=== PATIENT | female | born 1955 | race Caucasian/White ===

== ENCOUNTER 2017-10-17 13:46 | Outpatient (CLI) | payer BC | END 2017-10-17 13:47 | disposition home or self-care (01) | LOC: BICMAMMO 13:46 | PROVIDERS: ATTEND Obstetrics & Gynecology | DX: Z12.31 Encounter for screening mammogram for malignant neoplasm of breast (principal) | CPT/HCPCS: 77063; 77067 ==

== ENCOUNTER 2018-11-14 11:04 | Outpatient (CLI) | payer BC ==
--- NOTE | 2018-11-14 11:49 | MMO ---
Bilateral MAMMO Bilat Screen [facility]. CLINICAL HISTORY: Patient is 63 years old and is seen for screening. The patient has no family history of breast cancer. The patient has no personal history of cancer. The patient has a history of bilateral Excisional Biopsy at age 24 - benign. VIEWS: The views performed were: bilateral craniocaudal with tomosynthesis; bilateral mediolateral oblique with tomosynthesis; and right exaggerated craniocaudal. FILMS COMPARED: The present examination has been compared to prior imaging studies performed at [facility] on 05/02/2013, 05/06/2014, 06/25/2015, 10/13/2016 and 10/17/2017. MAMMOGRAM FINDINGS: The breasts are heterogeneously dense, which could obscure a lesion on mammography. There are no suspicious masses, suspicious calcifications, or new areas of architectural distortion. IMPRESSION: THERE IS NO MAMMOGRAPHIC EVIDENCE OF MALIGNANCY. A ROUTINE FOLLOW-UP MAMMOGRAM IN 1 YEAR IS RECOMMENDED. THE RESULTS OF THIS EXAM WERE SENT TO THE PATIENT. ACR BI-RADS Category 1 - Negative MAMMOGRAPHY NOTE: 1. A negative mammogram report should not delay a biopsy if a dominant of clinically suspicious mass is present. 2. Approximately 10% to 15% of breast cancers are not detected by mammography. 3. Adenosis and dense breasts may obscure an underlying neoplasm.
== END 2018-11-14 11:05 | disposition home or self-care (01) ==
LOC: BICMAMMO 11:04
PROVIDERS: ATTEND Obstetrics & Gynecology
DX: Z12.31 Encounter for screening mammogram for malignant neoplasm of breast (principal)
CPT/HCPCS: 77063; 77067

== ENCOUNTER 2020-04-06 10:49 | Outpatient (CLI) | payer BC ==
--- NOTE | 2020-04-06 15:33 | MRI ---
MRI OF THE LEFT LOWER LEG WITHOUT CONTRAST: INDICATION: History of left lower leg pain in the calf for 1 month. COMPARISON: Left foreleg radiograph dated 04/01/2020. FINDINGS: No acute fracture is evident. There are some globular increased T2 signal abnormalities in the poste rior aspect of the medullary canal of the mid shaft tibia suspicious for endosteal edema possibly rel ated to some mild stress reaction. No visible fracture is evident. There is some mild reactive susu a involving the medial tibial plateau which is likely reactive related to osteoarthritic change of th e left knee. There is a radial tear involving the posterior horn of the medial meniscus with medial extrusion. The fibula has a normal signal intensity. The musculature of the left foreleg is normal- appearing. IMPRESSION: 1. Some endosteal edema seen along the posterior aspect of the mid shaft tibia is suspicious for ear ly stress reaction. No visible stress fracture is evident. 2. Reactive marrow edema of the medial tibial plateau is likely related to osteoarthritic change. T here is a medial meniscal tear with partial medial extrusion. 3. Signal intensity of the fibula appears within normal limits. The musculature of the left foreleg appears within normal limits. POS: BH
== END 2020-04-06 10:50 | disposition home or self-care (01) ==
LOC: SCSMRI 10:49
PROVIDERS: ATTEND Orthopaedic Surgery
DX: M79.662 Pain in left lower leg (principal); R60.0 Localized edema; S83.242A Other tear of medial meniscus, current injury, left knee, initial encounter

== ENCOUNTER 2021-06-10 10:44 | Outpatient (CLI) | payer BC | END 2021-06-10 10:45 | disposition home or self-care (01) | LOC: BICMAMMO 10:44 | PROVIDERS: ATTEND Obstetrics & Gynecology | DX: Z12.31 Encounter for screening mammogram for malignant neoplasm of breast (principal); R92.1 Mammographic calcification found on diagnostic imaging of breast | CPT/HCPCS: 77063; 77067 ==

== ENCOUNTER 2021-06-16 08:49 | Outpatient (CLI) | payer BC | END 2021-06-16 08:50 | disposition home or self-care (01) | LOC: BICMAMMO 08:49 | PROVIDERS: ATTEND Obstetrics & Gynecology | DX: R92.1 Mammographic calcification found on diagnostic imaging of breast (principal) | CPT/HCPCS: G0279 ==

== ENCOUNTER → 2021-06-25 | Day surgery (SDC) | payer BC | LOC: MAMMO 06:49 | PROVIDERS: ATTEND Obstetrics & Gynecology | PROC: 0H9U3ZX Drainage of Left Breast, Percutaneous Approach, Diagnostic (ICD-10-PCS; principal; 2021-06-25) | DX: N63.21 Unspecified lump in the left breast, upper outer quadrant (principal); N60.12 Diffuse cystic mastopathy of left breast; N60.22 Fibroadenosis of left breast | CPT/HCPCS: 19081; 76098; 88305; 88341; 88342 ==